=== PATIENT | female | born 1985 | race Caucasian/White ===

== ENCOUNTER 2021-08-26 02:50 | Inpatient (IN) ==
[2021-08-26] MEDS ORDERED: SODIUM CHLORIDE 0.9% 1000ML 500 ML IV ONE (03:07)
[2021-08-26] MEDS ORDERED: MoRPHine SULFATE 4 MG/ML 1 ML CARP\\VIAL IV STA ×2 (03:07→09:03)
[2021-08-26] MEDS ORDERED: ONDANSETRON INJ 2 MG/ML 2 ML VIAL IV STA (03:07)
[2021-08-26 03:48] LABS: Hemoglobin 12.6 g/dL (12.0-16.0); Mean Corpuscular Hemoglobin 28.9 pg (25-34); Mean Corpuscular Hgb Conc 32.3 g/dL (32-36); Mean Corpuscular Volume 89.4 fL (80-100); Platelet Count 234 K/uL (130-400); RDW Coefficient of Variation 14.3 % (11.5-14.5); RDW Standard Deviation 47.4 fL (36.4-46.3); Red Blood Count 4.36 M/uL (4.2-5.4); White Blood Count 11.64 K/uL (4.8-10.8)
[2021-08-26 03:59] LABS: Prothrombin Time 10.3 Seconds (9.0-12.0)
[2021-08-26 04:10] LABS: Basophils # (auto) 0.02 K/uL (0-0.2); Basophils % (auto) 0.2 %; Eosinophils # (auto) 0.09 K/uL (0-0.5); Eosinophils % (auto) 0.8 %; Immature Granulocytes # (auto) 0.04 K/uL (0.00-0.02); Immature Granulocytes % (auto) 0.3 %; Lymphocytes % (auto) 30.9 %; Monocytes # (auto) 0.72 K/uL (0.11-0.59); Monocytes % (auto) 6.2 %; Neutrophils # (auto) 7.17 K/uL (1.4-6.5); Neutrophils % (auto) 61.6 %; RBC Morphology Unremarkable
[2021-08-26 04:16] LABS: Albumin Globulin Ratio 1.3 (0.9-2); Albumin Level 3.6 gm/dl (3.4-5.0); BUN Creatinine Ratio 17.6 (10-20); Bilirubin,Total 0.4 mg/dl (0.2-1.0); Calcium 8.6 mg/dl (8.5-10.1); Creatinine Clr Calc Pharmacy 114.5 ml/min; Est GFR (African American) 119.9 ml/min; Est GFR (Non-African American) 103.4 ml/min; Globulin 2.8 gm/dl (2.5-4.0); Potassium 3.8 mmol/L (3.5-5.1); Total Protein 6.4 gm/dl (6.0-8.3); Troponin I High Sensitivity 4.3 pg/ml (0-14)
[2021-08-26] MEDS ORDERED: OPTIRAY 320 125ml IV ONE (05:09)
[2021-08-26] MEDS ORDERED: ACETAMINOPHEN 1000 MG/100 ML IV IV STA (05:10)
--- NOTE | 2021-08-26 05:36 | Emergency Department Note ---
History of Present Illness General Chief complaint: Flank Pain Time Seen by Provider: 08/26/21 02:56 History of Present Illness Maximum Pain Intensity: 8 This 36-year-old female patient presents to the emergency department today for evaluation of right side pain "just under my ribs". The patient states she has a history of brain tumor, seizures, and was recently admitted to [facility] for strokelike symptoms. [facility]. She notes she developed the pain about 2 days ago. She states there has been intermittent burning with urination and urinary frequency. She does have a known left-sided DVT in her left lower extremity and states she is on Lovenox for this clot. She states a urinalysis was obtained earlier today and she does not have the results of this study back yet. She states the pain feels different than constipation pain. She states this does feel different than her fibromyalgia. She denies any history of similar symptoms. There is no shortness of breath, but she has had some increased pain with deep breathing. Patient was given Percocet prior to arrival for the pain. She rates the pain 8/10 and describes it as sharp. Past Med/Surg History Medical History Anaplastic astrocytoma Bipolar affective disorder Borderline personality disorder Chronic low back pain Deep vein thrombosis (DVT) of left lower extremity Fibromyalgia Insomnia Left hemiplegia Migraines Seizure disorder Social History Smoking Status: Never smoker Preferred Language: [place] Feels Safe at Home: Yes Review of Systems A total of 10 systems reviewed and were otherwise negative Physical Exam Vital Signs Vital Signs - 24 hr 08/26/21 03:05 08/26/21 03:09 08/26/21 03:10 Temperature 36.9 C 36.9 C Temperature Source Oral Oral Pulse Rate 71 71 Pulse Rate [Finger] 71 Pulse Rhythm Regular Pulse Rhythm [Finger] Regular Pulse Strength Normal Pulse Strength [Finger] Normal Respiratory Rate 20 20 20 Respiratory Effort / Characteristics Non-Labored Spontaneous Non-Labored Spontaneous Respiratory Depth Normal Normal Blood Pressure 145/97 H Blood Pressure [Right Arm] 145/97 H Blood Pressure Mean 113 Blood Pressure Mean [Right Arm] 113 Blood Pressure Position Lying Blood Pressure Position [Right Arm] Lying Pulse Oximetry 92 92 92 Oxygen Delivery Method Room Air Room Air Room Air Oxygen Flow Rate Sepsis Recent Fever Within 48 Hours No Sepsis New/Unexplained Change in Mental Status No Sepsis Action Taken by Nursing No Action Required 08/26/21 05:11 Temperature Temperature Source Pulse Rate Pulse Rate [Finger] 88 Pulse Rhythm Pulse Rhythm [Finger] Regular Pulse Strength Pulse Strength [Finger] Normal Respiratory Rate 18 Respiratory Effort / Characteristics Non-Labored Spontaneous Respiratory Depth Normal Blood Pressure Blood Pressure [Right Arm] 150/97 H Blood Pressure Mean Blood Pressure Mean [Right Arm] 114 Blood Pressure Position Blood Pressure Position [Right Arm] Lying Pulse Oximetry 93 Oxygen Delivery Method Nasal Cannula Oxygen Flow Rate 2 Sepsis Recent Fever Within 48 Hours Sepsis New/Unexplained Change in Mental Status Sepsis Action Taken by Nursing VITALS: Vitals are noted on the nurse's note and reviewed by myself. Patient O2 saturation 90 to 92% on room air. GENERAL: This is a 36-year-old white female, in no acute distress, nondiaphoretic, well-developed well-nourished. SKIN: The skin was without rashes, erythema, edema, or bruising. There is no tenting of the skin. Capillary refill less than 2 seconds. HEAD: Normocephalic atraumatic. EYES: Conjunctivae without injection, sclerae without icterus. NECK: Supple without nuchal rigidity. No lymphadenopathy. Cervical spine is nontender. No JVD. CHEST: Reproducible tenderness to palpation of the left anterior and posterior thorax HEART: Regular rate and rhythm without murmurs gallops or rubs. LUNGS: Clear to auscultation bilaterally without wheezes, rales or rhonchi. No retractions or accessory muscle use. ABDOMEN: Positive bowel sounds x 4. Soft, nontender, without masses or organomegaly. Nolen sign negative. No guarding or rebound tenderness. MUSCULOSKELETAL: No muscle atrophy, erythema, or edema noted. Full range of motion without joint tenderness in all extremities. No tenderness to palpation. Normal gait. Strength 5/5 throughout. NEURO: Patient was alert and oriented to person place and time. Normal sensation to light and sharp touch. Deep tendon reflexes 2+ throughout. No focal neurological deficits. Course Course The patient was seen and evaluated as above. I discussed the case with my attending. An order was placed for continuous cardiac monitoring. The monitor shows a normal sinus rhythm at a rate of 88 bpm. IV access obtained, labs drawn. Pt. medicated with IV fluids, zofran, morphine. Labs reviewed by myself. Patient continued to complain of pain. She was medicated with IV acetaminophen CT Imaging performed and reviewed by myself and radiologist as noted. I discussed the findings with the patient at bedside. 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 Mata[facility] He did agree to see and evaluate the patient for admission. He did request that the admission go to Dr. Mosley at shift change in the morning. Please see [facility] dictation regarding ongoing management and care of this patient. Administered Medications Discontinued Medications Acetaminophen (Acetaminophen 1000 Mg/100 Ml Iv) 1,000 mg IV NOW STA Stop: 08/26/21 05:11 Last Admin: 08/26/21 05:13 Dose: 1,000 mg Documented by: [id number] Sodium Chloride (Nss 1000ml) 500 mls @ 999 mls/hr IV .Q31M ONE Stop: 08/26/21 03:37 Last Infusion: 08/26/21 03:46 Dose: 0 mls/hr Documented by: [id number] Admin: 08/26/21 03:17 Dose: 999 mls/hr Documented by: [id number] Ioversol (Optiray 320 125ml) 125 ml IV ONCE ONE Stop: 08/26/21 05:10 Last Admin: 08/26/21 05:09 Dose: 116 ml Documented by: [id number] Morphine Sulfate (Morphine Sulfate 4 Mg/Ml 1 Ml Carp\\Vial) 4 mg IV NOW STA Stop: 08/26/21 03:08 Last Admin: 08/26/21 03:20 Dose: 4 mg Documented by: [id number] Ondansetron HCl (Ondansetron Inj 2 Mg/Ml 2 Ml Vial) 4 mg IV NOW STA Stop: 08/26/21 03:08 Last Admin: 08/26/21 03:15 Dose: 4 mg Documented by: [id number] Medical Decision Making Differential Diagnosis Cardiac ischemia, aortic dissection, pulmonary embolism, pneumothorax, pneumonia, pericarditis, myocarditis, esophageal rupture, GERD, cholecystitis, pancreatitis, musculoskeletal, as well as other pathologies. Medical Records Attestation: I reviewed the patient's medical records. Home Medications Current Medication List: was personally reviewed by me Laboratory Data Mild leukocytosis of 11,000. No anemia or thrombocytopenia. Renal, hepatic function and electrolytes without significant abnormality. Lipase 9. INR 1.0. Result diagrams: 08/26/21 03:08/26/21 03:26 Lab Results 08/26/21 08/26/21 08/26/21 Range/Units 03:26 03: 03:26 WBC 11.64 H (4.8-10.8) K/uL RBC 4.36 (4.2-5.4) M/uL Hgb 12.6 (12.0-16.0) g/dL Hct 39.0 (37-47) % MCV 89.4 (80-100) fL MCH 28.9 (25-34) pg MCHC 32.3 (32-36) g/dL RDW Std Deviation 47.4 H (36.4-46.3) fL RDW Coeff of Elisa 14.3 (11.5-14.5) % Plt Count 234 (130-400) K/uL MPV 10.0 (7.4-10.4) fL Immature Gran % (Auto) 0.3 % Neut % (Auto) 61.6 % Lymph % (Auto) 30.9 % [place] % (Auto) 6.2 % Eos % (Auto) 0.8 % Baso % (Auto) 0.2 % Neut # (Auto) 7.17 H (1.4-6.5) K/uL Lymph # (Auto) 3.60 H (1.2-3.4) K/uL [place] # (Auto) 0.72 H (0.11-0.59) K/uL Eos # (Auto) 0.09 (0-0.5) K/uL Baso # (Auto) 0.02 (0-0.2) K/uL Immature Gran # (Auto) 0.04 H (0.00-0.02) K/uL RBC Morphology Unremarkable PT 10.3 (9.0-12.0) Seconds INR 1.0 (0.9-1.1) Sodium 139 (136-145) mmol/L Potassium 3.8 (3.5-5.1) mmol/L Chloride 104 (98-107) mmol/L Carbon Dioxide 26 (21-32) mmol/L Anion Gap 9 (3-11) BUN 12 (6-23) mg/dl Creatinine 0.68 (0.6-1.2) mg/dl Est Cr Clr Drug Dosing 114.5 ml/min Est GFR ( Amer) 119.9 ml/min Est GFR (Non-Af Amer) 103.4 ml/min BUN/Creatinine Ratio 17.6 (10-20) Glucose 91 (70-99(Fasting)) mg/dl Calcium 8.6 (8.5-10.1) mg/dl Total Bilirubin 0.4 (0.2-1.0) mg/dl AST 15 (13-39) U/L ALT 19 (7-52) U/L Alkaline Phosphatase 47 (34-104) U/L Troponin I High Sens 4.3 (0-14) pg/ml Total Protein 6.4 (6.0-8.3) gm/dl Albumin 3.6 (3.4-5.0) gm/dl Globulin 2.8 (2.5-4.0) gm/dl Albumin/Globulin Ratio 1.3 (0.9-2) Lipase 9 L (11-82) U/L Imaging Data Radiologist's Impression: CTA CHEST: Impression: There is acute lobar, segmental and subsegmental pulmonary embolism seen in the lower lobes No evidence of right heart strain. Segmental pulmonary embolism seen in the lingula and in the segment of the right middle lobe. Small right pleural effusion Bilateral basilar consolidations are seen. Radiologist: Samuel Bernal MD CT ABDOMEN & PELVIS With Contrast: Impression: Small right pleural effusion Bilateral basilar pneumonia Moderate amount of fecal matter seen in the colon which can be correlated with history of constipation Appendectomy No evidence of cholecystitis Radiologist: Samuel Bernal MD ECG Data Attestation: I personally reviewed and interpreted this ECG as follows: Indication: + chest pain Rate (beats per minute): 67 Rhythm: + normal sinus ECG ST segments: no ST depression, no ST elevation or no T-wave inversions Comparison ECG Date: no prior available Blood Pressure Blood Pressure Findings: Elevated blood pressure Blood Pressure Disposition: elevated BP felt to be situational MDM Narrative This 36-year-old female patient presents to the emergency department today for evaluation of right rib pain. The patient was recently hospitalized. She was also found to have a left lower extremity DVT. She does have a history of malignancy, recent hospitalization, and known DVT did recommend CT imaging to evaluate for PE, as well as CT abd/pelvis due to location of pain. CT imaging was concerning for acute PE as noted. No evidence of heart strain. Troponin negative. Patient was started on heparin while in the emergency department. She will be admitted to the [facility] hospitalist service for ongoing management and care. Please see hospitalist dictation. The chart was completed utilizing [employer] Speech voice recognition software. Grammatical errors, random word insertions, pronoun errors, and incomplete sentences are an occasional consequence of this system due to software limitations, ambient noise, and hardware issues. Any formal questions or concerns about the content, text, or information contained within the body of this dictation should be directly addressed to the provider for clarification. Impression & Plan Pulmonary embolism, Acute right-sided thoracic back pain Discharge Plan Visit Data Chief Complaint: Flank Pain ED Provider: Rubin Murphy ED Midlevel Provider: Liz Skinner Discharge Problem: Pulmonary embolism, Acute right-sided thoracic back pain Patient Disposition: Admitted As Inpatient Forms Stand Alone Forms: [facility] Referrals Referrals: PCP,NO [Primary Care Provider] -
[2021-08-26] MEDS ORDERED: Heparin IV Adult Wt-Based Standard WITH Bolus Protocol IV STA (06:31)
[2021-08-26] MEDS ORDERED: HEPARIN SOD (PORCINE) 1000 UNIT/ML IV ONE ×2 (06:46→07:45)
--- NOTE | 2021-08-26 06:46 | CT Scan Report ---
CT ANGIOGRAPHY OF THE CHEST, PULMONARY EMBOLUS PROTOCOL CLINICAL HISTORY: right "rib pain", known DVT COMPARISON STUDY: No previous studies for comparison. TECHNIQUE: Following IV administration of 116 mL of Optiray, helical axial images of the chest were o btained utilizing the pulmonary embolus protocol. Maximal intensity projections and sagittal and cor onal reformats were viewed on an independent 3D workstation. IV contrast was administered without co mplication. Automated exposure control was utilized for the study. A dose lowering technique was ut ilized adhering to the principles of ALARA. CT DOSE: 2168.34 mGy.cm FINDINGS: There are numerous bilateral pulmonary emboli, including emboli within the distal left pul monary artery. There are multiple lobar and segmental pulmonary emboli, predominantly within the lowe r lobes. There is associated extensive right lower lobe subpleural opacity, some of which does not en yasmin. There is a trace right pleural effusion. This suggests a right lower lobe infarct. Left lung o pacities favor atelectasis. There is no pneumothorax. No CT evidence for right heart strain. Size of the heart is at the upper limits of normal. No enlarged axillary, mediastinal or hilar lymph nodes ar e present. There is no pneumomediastinum. No pneumothorax is present. No acute fracture or suspicious lesion within the visualized bony thorax. Visualized portions of the upper abdomen are unremarkable. IMPRESSION: 1. Numerous bilateral pulmonary emboli, as described above. Right lower lobe subpleural opacity consi stent with a pulmonary infarct with a small right pleural effusion. 2. Additional airspace opacities within the lungs favor atelectasis. ACT 112: Negative or not required by law. Electronically signed by: Phan Quinones M.D. 08/26/2021 6:44 AM
[2021-08-26] MEDS ORDERED: HEPARIN SODIUM/DEXTROSE 25,000 UNITS/500 ML BAG IV SCH ×2 (07:00→07:45)
[2021-08-26] MEDS ORDERED: oxyCODONE HCL IR 5 MG TAB (IMMEDIATE RELEASE) PO PRN (09:15)
--- NOTE | 2021-08-26 09:21 | CT Scan Report ---
CT abd pelvis IV con only CLINICAL HISTORY: Right-sided lower chest pain radiating down the right flank. COMPARISON STUDY: No previous studies for comparison. CT DOSE: TECHNIQUE: Standard CT of the Abdomen and Pelvis was performed with IV contrast. A dose lowering caryn hnique was utilized adhering to the principles of ALARA. Contrast Volume: Optiray 320, 116 ml. The patient did not receive oral contrast. FINDINGS: Lung base: There is prominent alveolar opacity the right lung base characteristic of atelectasis vers us early pneumonia. There is linear atelectasis left lung base. There is a small right pleural effusi on. Abdominal cavity: There is no evidence for abdominal mass, adenopathy or ascites. Liver: There is homogeneous attenuation of the liver parenchyma. There is no evidence for enhancing m ass lesion. Spleen: There is homogeneous attenuation of the splenic parenchyma. There is no enhancing mass lesion . Pancreas: There is homogeneous attenuation of the pancreatic parenchyma. There is no evidence for mas s lesion or peripancreatic fluid collection. Gall Bladder: The gallbladder is well distended with no evidence for intraluminal calculi, wall thick ening or pericholecystic edema. Adrenal glands: The adrenal glands are normal in size and attenuation. There is no evidence for enhan cing mass lesion. Kidneys: There is homogeneous attenuation of the renal parenchyma bilaterally. There is no evidence f or renal calculus or hydronephrosis. There is no evidence for enhancing mass. Bowel: The bowel loops are normally placed within the abdomen and pelvis without evidence for dilatat ion or obstruction. There is no evidence for mass lesion. There is mild to moderate fecal stasis with out evidence for impaction or obstruction. There are no inflammatory changes present. There is no david dence for free air. Surgical clips are present from previous appendectomy. Bladder: The bladder is within normal limits with no evidence for focal mass, calculus or diverticulu m. : There is no evidence for pelvic mass or adenopathy. There is no evidence for pelvic ascites. Vasculature: There is no evidence for aneurysmal dilatation of the abdominal aorta. Osseous structures: There is no acute osseous pathology. IMPRESSION: 1. Very prominent atelectasis versus early pneumonia at the right lung base. Small right pleural effu phil is also present. 2. Left basilar atelectasis is also present. 3. No renal calculi or hydronephrosis. 4. Status post previous appendectomy. 5. Mild to moderate fecal stasis without impaction or obstruction. ACT 112: Negative or not required by law. Electronically signed by: David Milton M.D. 08/26/2021 9:18 AM
--- NOTE | 2021-08-26 09:54 | Electrocardiogram Report ---
Test Reason : Blood Pressure : / mmHG Vent. Rate : 067 BPM Atrial Rate : 067 BPM P-R Int : 146 ms QRS Dur : 084 ms QT Int : 388 ms P-R-T Axes : -04 015 012 degrees QTc Int : 409 ms Normal sinus rhythm Nonspecific T wave abnormality Abnormal ECG No previous ECGs available Confirmed by Chicho Rudd ([id number]) on 08/26/2021 9:53:39 AM Referred By: REFERRED SELF Confirmed By:Chicho Rudd
[2021-08-26] MEDS ORDERED: BACLOFEN 10 MG TAB PO PRN (10:06)
[2021-08-26] MEDS ORDERED: DOCUSATE SODIUM/SENNA 50/8.6MG TAB PO PRN (10:06)
[2021-08-26] MEDS ORDERED: bisacodyL 10 MG SUPP PR PRN (10:06)
[2021-08-26] MEDS ORDERED: TEMAZEPAM 15 MG CAPSULE PO PRN (10:06)
[2021-08-26] MEDS ORDERED: hydrOXYzine HCl 25 MG TAB PO PRN (10:06)
[2021-08-26] MEDS: ACETAMINOPHEN 325 MG TAB PO SCH ×2 (10:18→17:59)
--- NOTE | 2021-08-26 11:41 | History & Physical Report ---
Date of Service August 26, 2021 Assessment & Plan (1) Pulmonary embolism: (2) Deep vein thrombosis (DVT) of left lower extremity: Plan: Admit to [facility] with telemetry Patient presenting from [facility] for evaluation of right rib pleuritic pain In the ED, CTA chest shows numerous bilateral pulmonary emboli, as described above. Right lower lobe subpleural opacity consistent with a pulmonary infarct with a small right pleural effusion. Recently diagnosed with LLE DVT (partially occlusive DVT of the left proximal femoral and popliteal veins) on 08/21 at [facility]. Patient started on therapeutic dose Lovenox at that time. Currently requiring 2 L of oxygen via nasal cannula to maintain saturations Multiple VTE risk factors identified -underlying malignancy, decreased mobility due to onset of recent left hemiplegia, + smoker, control use Difficult to say if this was a true Lovenox failure Case discussed with patient's primary oncologist Dr. 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 Recent brain MRI has shown progression of tumor --oncology considering palliative chemotherapy, not a candidate for surgical or radiation intervention (4) Seizure disorder: Plan: Stable, continue Vimpat (5) Bipolar affective disorder: (6) Fibromyalgia: Plan: Continue home meds (7) DVT prophylaxis: Plan: On IV heparin as above Admission and Anticipated Discharge Date Admission Date: August 26, 2021 History of Present Illness Chief Complaint: Right-sided rib pain Primary Care Provider: Marek Crum 36-year-old female with 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 Patient recently admitted to [facility] 08/15 through 08/20 for evaluation of left-sided hemiparesis. Patient underwent brain MRI that showed changes concerning for tumor progression and ischemia around mass, no ischemic stroke noted. Patient was started on dexamethasone 2 mg twice daily to reduce vasogenic edema. Oncology was consulted and suggested consideration for palliative chemotherapy with Avastin and Temodar. Neurosurgery is not recommending any surgical intervention for the tumor at this time. Patient is also not a candidate for radiation per radiation oncology. Patient was discharged to [facility] for rehab. Upon arrival to [facility], patient was complaining of left calf pain. LLE venous Doppler on 08/21 showed a partially occlusive DVT of the left proximal femoral and popliteal veins. Patient was started on therapeutic dose Lovenox. Patient reports she developed a right- sided rib pain that is wrapping around into her back a couple of days ago. Patient reports that it is difficult to take a deep breath as this makes the pain worse, she seems to deny shortness of breath. No chest pain or cough. Denies lightheadedness, dizziness, diaphoresis, syncopal events. No abdominal pain, nausea, vomit, diarrhea. Denies urinary symptoms. Left-sided hemiparesis continues. In the ED, CTA chest shows numerous bilateral pulmonary emboli, as described above. Right lower lobe subpleural opacity consistent with a pulmonary infarct with a small right pleural effusion. Patient is requiring 2 L of oxygen via nasal cannula to maintain saturations. Patient was started on IV heparin. She was also given IV acetaminophen, IV morphine, IV Zofran, IVF. Labs are unremarkable. Allergies Allergy/AdvReac Type Severity Reaction Status Date / Time sumatriptan [From Imitrex] Allergy Unknown Unknown Unverified 08/26/21 07:00 barium sulfate AdvReac Severe heart Unverified 08/26/21 07:00 attack feeling codeine AdvReac Intermediate Throwing up Unverified 08/26/21 07:00 gabapentin AdvReac Intermediate sleepy, Unverified 08/26/21 07:00 tired, dizzy Home Medications Medication Instructions Recorded Confirmed Type Saccharomyces boulardii 250 mg 250 mg PO DAILY 08/26/21 08/26/21 History capsule acetaminophen 325 mg tablet 650 mg PO Q4H PRN 08/26/21 08/26/21 History artificial tears with lanolin eye 1 applic OPHTHALMIC (EYE) Q8H PRN 08/26/21 08/26/21 History ointment baclofen 10 mg tablet 10 mg PO TID PRN 08/26/21 08/26/21 History balsam moe-castor oil topical 1 applic TOPICAL DAILY 08/26/21 08/26/21 History ointment bisacodyl 10 mg rectal suppository 10 mg WV DAILY PRN 08/26/21 08/26/21 History dexamethasone 2 mg tablet 2 mg PO BID 08/26/21 08/26/21 History diclofenac sodium 1 % topical gel 2 g TOPICAL DAILY PRN 08/26/21 08/26/21 History docusate sodium 100 mg capsule 100 mg PO BID 08/26/21 08/26/21 History duloxetine 60 mg capsule,delayed 60 mg PO QAM 08/26/21 08/26/21 History release enoxaparin 100 mg/mL subcutaneous 90 mg SUBCUT Q12H 08/26/21 08/26/21 History syringe famotidine 20 mg tablet 20 mg PO BID 08/26/21 08/26/21 History fenofibrate nanocrystallized 48 mg 48 mg PO QAM 08/26/21 08/26/21 History tablet guanfacine 1 mg tablet 1 mg PO BID 08/26/21 08/26/21 History hydroxyzine HCl 50 mg tablet 50 mg PO DAILY PRN 08/26/21 08/26/21 History lacosamide 100 mg tablet (Vimpat) 100 mg PO BID 08/26/21 08/26/21 History loratadine 10 mg tablet 10 mg PO DAILY 08/26/21 08/26/21 History magnesium hydroxide 400 mg/5 mL 30 ml PO DAILY PRN 08/26/21 08/26/21 History oral suspension (Milk of Magnesia) menthol 5 % topical gel (Biofreeze 1 ea TOPICAL QID PRN 08/26/21 08/26/21 History (menthol)) metoprolol tartrate 25 mg tablet 12.5 mg PO BID 08/26/21 08/26/21 History multivitamin 1 tab PO DAILY 08/26/21 08/26/21 History norgestimate-ethinyl estradiol 1 tab PO HS 08/26/21 08/26/21 History 0.18 mg/0.215mg/0.25mg-35 mcg(28)tablet (Tri-Sprintec (28)) oxycodone-acetaminophen 5 mg-325 1 tab PO Q4H PRN 08/26/21 08/26/21 History mg tablet polyethylene glycol 3350 17 17 g PO DAILY 08/26/21 08/26/21 History gram/dose oral powder (Miralax) prochlorperazine maleate 10 mg 10 mg PO Q6H PRN 08/26/21 08/26/21 History tablet rizatriptan 10 mg disintegrating 10 mg TRANSLINGUAL DAILY PRN 08/26/21 08/26/21 History tablet sennosides 8.6 mg-docusate sodium 1 tab-cap PO DAILY PRN 08/26/21 08/26/21 History 50 mg tablet (Senokot-S) sodium phosphates 19 gram-7 118 ml WV DAILY PRN 08/26/21 08/26/21 History gram/118 mL enema (Fleet Enema) temazepam 15 mg capsule 15 mg PO HS PRN 08/26/21 08/26/21 History ziprasidone HCl 20 mg capsule 20 mg PO BID 08/26/21 08/26/21 History Past Med/Surg History Medical History 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, s/p craniotomy x 2 Bipolar affective disorder Borderline personality disorder Chronic low back pain Deep vein thrombosis (DVT) of left lower extremity Fibromyalgia Hypertriglyceridemia Insomnia Left hemiplegia Migraines Seizure disorder Surgical History History of appendectomy History of carpal tunnel surgery Family History (Updated 08/26/21 @ 11:30 by ALB[place] Mejía) Father Suicide Mother Heart murmur Social History Smoking Status: Current every day smoker Second Hand Exposure: No; Do You Dip or Chew Tobacco: No; Preferred Language: Upper Sorbian Communication Ability: Impaired Non Profit Director Required: No Beliefs That Will Affect Care: None Current Living Situation: Alone Current Living Situation Comment: "live with a cat" Feels Safe at Home: Yes Safety Concerns: Feels Safe At This Time Assistive Devices: Wheelchair Review of Systems Review of Systems: ROS per HPI, all other systems reviewed and negative Physical Exam Constitutional: WD/WN, vitals as above Eyes: PERRL, conjunctivae normal, anicteric sclerae ENMT: external ear and nose normal, oropharynx normal Respiratory: normal respiratory effort, lungs clear to auscultation Cardiovascular: Rate/Rhythm: regular rate and regular rhythm Vessels: normal peripheral pulses Extremities: no edema Gastrointestinal (Abdomen): normal bowel sounds, soft, nontender, no hepatosplenomegaly Musculoskeletal: Extremities: no cyanosis and no clubbing Left hemiparesis Skin: no rashes, warm and dry Neurologic: PERRL, EOMI, accommodation nl, no face palsy, no dysarthria Psychiatric: Orientation: alert and oriented x 3 Affect: + flat affect Results & Data Results & Data ([facility]) Vital Signs (Past 12 Hours) Vital Signs Temp Pulse Pulse Resp BP BP Pulse Ox 08/26/21 09:52 36.3 C L 103 H 20 146/88 H 90 08/26/21 08:57 94 H 20 158/114 H 92 08/26/21 07:48 80 80 12 133/89 91 08/26/21 07:00 91 08/26/21 05:11 88 18 150/97 H 93 08/26/21 03:10 71 20 92 08/26/21 03:09 36.9 C 71 20 145/97 H 92 08/26/21 03:05 36.9 C 71 20 145/97 H 92 Laboratory Results Short CBC 08/26/21 Range/Units 03:26 WBC 11.64 H (4.8-10.8) K/uL Hgb 12.6 (12.0-16.0) g/dL Hct 39.0 (37-47) % Plt Count 234 (130-400) K/uL BMP 08/26/21 03:26 Sodium 139 Potassium 3.8 Chloride 104 Carbon Dioxide 26 BUN 12 Creatinine 0.68 Glucose 91 Calcium 8.6 Liver Function 08/26/21 Range/Units 03:26 Total Bilirubin 0.4 (0.2-1.0) mg/dl AST 15 (13-39) U/L ALT 19 (7-52) U/L Alkaline Phosphatase 47 (34-104) U/L Albumin 3.6 (3.4-5.0) gm/dl Diagnostic Findings Abdomen/Pelvis CT 08/26/21 03:07 CT abd pelvis IV con only CLINICAL HISTORY: Right-sided lower chest pain radiating down the right flank. COMPARISON STUDY: No previous studies for comparison. CT DOSE: TECHNIQUE: Standard CT of the Abdomen and Pelvis was performed with IV contrast. A dose lowering technique was utilized adhering to the principles of ALARA. Contrast Volume: Optiray 320, 116 ml. The patient did not receive oral contrast. FINDINGS: Lung base: There is prominent alveolar opacity the right lung base characteristic of atelectasis versus early pneumonia. There is linear atelectasis left lung base. There is a small right pleural effusion. Abdominal cavity: There is no evidence for abdominal mass, adenopathy or ascites. Liver: There is homogeneous attenuation of the liver parenchyma. There is no evidence for enhancing mass lesion. Spleen: There is homogeneous attenuation of the splenic parenchyma. There is no enhancing mass lesion. Pancreas: There is homogeneous attenuation of the pancreatic parenchyma. There is no evidence for mass lesion or peripancreatic fluid collection. Gall Bladder: The gallbladder is well distended with no evidence for intraluminal calculi, wall thickening or pericholecystic edema. Adrenal glands: The adrenal glands are normal in size and attenuation. There is no evidence for enhancing mass lesion. Kidneys: There is homogeneous attenuation of the renal parenchyma bilaterally. There is no evidence for renal calculus or hydronephrosis. There is no evidence for enhancing mass. Bowel: The bowel loops are normally placed within the abdomen and pelvis without evidence for dilatation or obstruction. There is no evidence for mass lesion. There is mild to moderate fecal stasis without evidence for impaction or obstruction. There are no inflammatory changes present. There is no evidence for free air. Surgical clips are present from previous appendectomy. Bladder: The bladder is within normal limits with no evidence for focal mass, calculus or diverticulum. : There is no evidence for pelvic mass or adenopathy. There is no evidence for pelvic ascites. Vasculature: There is no evidence for aneurysmal dilatation of the abdominal aorta. Osseous structures: There is no acute osseous pathology. IMPRESSION: 1. Very prominent atelectasis versus early pneumonia at the right lung base. Small right pleural effusion is also present. 2. Left basilar atelectasis is also present. 3. No renal calculi or hydronephrosis. 4. Status post previous appendectomy. 5. Mild to moderate fecal stasis without impaction or obstruction. ACT 112: Negative or not required by law. Electronically signed by: David Milton M.D. 08/26/2021 9:18 AM Chest CTA 08/26/21 03:07 CT ANGIOGRAPHY OF THE CHEST, PULMONARY EMBOLUS PROTOCOL CLINICAL HISTORY: right "rib pain", known DVT COMPARISON STUDY: No previous studies for comparison. TECHNIQUE: Following IV administration of 116 mL of Optiray, helical axial images of the chest were obtained utilizing the pulmonary embolus protocol. Maximal intensity projections and sagittal and coronal reformats were viewed on an independent 3D workstation. IV contrast was administered without complication. Automated exposure control was utilized for the study. A dose lowering technique was utilized adhering to the principles of ALARA. CT DOSE: 2168.34 mGy.cm FINDINGS: There are numerous bilateral pulmonary emboli, including emboli within the distal left pulmonary artery. There are multiple lobar and segmental pulmonary emboli, predominantly within the lower lobes. There is associated extensive right lower lobe subpleural opacity, some of which does not enhance. There is a trace right pleural effusion. This suggests a right lower lobe infarct. Left lung opacities favor atelectasis. There is no pneumothorax. No CT evidence for right heart strain. Size of the heart is at the upper limits of normal. No enlarged axillary, mediastinal or hilar lymph nodes are present. There is no pneumomediastinum. No pneumothorax is present. No acute fracture or suspicious lesion within the visualized bony thorax. Visualized portions of the upper abdomen are unremarkable. IMPRESSION: 1. Numerous bilateral pulmonary emboli, as described above. Right lower lobe subpleural opacity consistent with a pulmonary infarct with a small right pleural effusion. 2. Additional airspace opacities within the lungs favor atelectasis. ACT 112: Negative or not required by law. Electronically signed by: Phan Quinones M.D. 08/26/2021 6:44 AM Code Status & VTE Plan Code Status Patient is a DNR as per my discussion with her. Patient states that her mother, Marisol, will be her decision-maker in the event she were to be unable to. VTE Prophylaxis Plan VTE Prophylaxis will be ordered: Yes Supervising Physician Co-Signing Physician Notes Pt was seen and examined and examined. Agree with Roula LOVELACE exam, assessment and plan. 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 Patient as recently on 08/15 to 08/20 for evaluation of left-sided hemiparesis. She was discharged to [facility] for rehab. While at [facility] she was complaining of L calf pain and LLE venous Doppler on 08/21 showed a partially occlusive DVT of the left proximal femoral and popliteal veins. Spoke to the provider at [facility] that pt was started on Lovenox daily then changed to Lovenox 90mg therapeutic dose twice a day 1 day ago. She was brought to the ER after developing right-sided rib pain that is wrapping around into her back a couple of days ago. CTA chest done in the ER showed chest shows numerous bilateral pulmonary emboli. Right lower lobe subpleural opacity consistent with a pulmonary infarct with a small right pleural effusion.She was started on heparin drip and oxygen supplement. Case discussed with patient's primary oncologist Dr. Luan Flor at [facility] --agrees with IV heparin for now, transition to Eliquis or therapeutic dose Lovenox pending patient cost. Consider outpatient CT chest for follow up on the pulmonary infarct When patient was brought to the floor, nurse paged me that patient wants to transfer to [place] or transition to hospice or sign AMA. I went to talk to patient she said that she wants to leave the hospital now because she does not like this hospital. She said that she does not feel safe being in this hospital. She said that she does not want to spend another night in the hospital if not she will sign AMA. Later her mother came to visit her. With patient permission she gave consent to discuss case with Mother and mother partner. I called [facility] discussed the case with Dr. Velez that declined the transfer due to hospital capacity (no bed) and since pt is stable that required any treatment or service that she will need at a tertiary care for transfer. Pt agreed to Transfer to [facility]. Case discussed with Dr. Ly at [facility] that agreed to take her. At [facility] pt will transition to hospice. manager of organizational development was notified and referral placed for hospice. Will d/c IV heparin drip and transition to Eliquis. If cost is an issue, pt can go back on Lovenox. Will do Eliquis 10mg BID x 7 days, then 5mg BID. Clinically stable on 2L oxygen nasal gayle Mosley MD (1) Pulmonary embolism Pulmonary embolism type: multiple subsegmental (without acute cor pulmonale) Qualified Code(s): I26.94 - Multiple subsegmental pulmonary emboli without acute cor pulmonale
[2021-08-26] MEDS: MoRPHine SULFATE 4 MG/ML 1 ML CARP\\VIAL IV PRN ×2 (14:02→20:26)
[2021-08-26 14:53] LABS: Partial Thromboplastin Ratio 1.4; Partial Thromboplastin Time 38.4 Seconds (21.0-31.0)
[2021-08-26] MEDS ORDERED: APIXABAN 5 MG TABLET PO SCH (18:00)
--- NOTE | 2021-08-26 18:05 | Discharge Summary ---
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 Patient recently [place] [facility] [place] 08/20 for evaluation of left-sided hemiparesis. Patient underwent brain MRI that showed changes concerning for tumor progression and ischemia around mass, no ischemic stroke noted. Patient was started on dexamethasone 2 mg twice daily to reduce vasogenic edema. Oncology was consulted and suggested consideration for pall iative chemotherapy with Avastin and Temodar. Neurosurgery is not recommending any surgical intervention for the tumor at this time. Patient is also not a candidate for radiation per radiation oncology. Patient was discharged to [facility] for rehab. Upon arrival to [facility], patient was complaining of left calf pain. LLE venous Doppler on 08/21 showed a partially occlusive DVT of the left proximal femoral and popliteal veins. Patient was started on therapeutic dose Lovenox. Patient reports she developed a right-sided rib pain that is wrapping around into her back a couple of days ago. Patient reports that it is difficult to take a deep breath as this makes the pain worse, she seems to deny shortness of breath. No chest pain or cough. Denies lightheadedness, dizziness, diaphoresis, syncopal events. No abdominal pain, nausea, vomit, diarrhea. Denies urinary symptoms. Left-sided hemiparesis continues. In the ED, CTA chest shows numerous bilateral pulmonary emboli, as described above. Right lower lobe subpleural opacity consistent with a pulmonary infarct with a small right pleural effusion. Patient is requiring 2 L of oxygen via nasal cannula to maintain saturations. Patient was started on IV heparin. She was also given IV acetaminophen, IV morphine, IV Zofran, IVF. Labs are unremarkable. Admission Exam Per Admitting Provider Constitutional: WD/WN, vitals as above Eyes: PERRL, conjunctivae normal, anicteric sclerae ENMT: external ear and nose normal, oropharynx normal Respiratory: normal respiratory effort, lungs clear to auscultation Cardiovascular: Rate/Rhythm: regular rate and regular rhythm Vessels: normal peripheral pulses Extremities: no edema Gastrointestinal (Abdomen): normal bowel sounds, soft, nontender, no hepatosplenomegaly Musculoskeletal: Extremities: no cyanosis and no clubbing Left hemiparesis Skin: no rashes, warm and dry Neurologic: PERRL, EOMI, accommodation nl, no face palsy, no dysarthria Psychiatric: Orientation: alert and oriented x 3 Affect: + flat affect Principal Diagnosis (1) Pulmonary embolism: (2) Deep vein thrombosis (DVT) of left lower extremity: (3) Anaplastic astrocytoma: (4) Seizure disorder: (5) Bipolar affective disorder: (6) Fibromyalgia: Discharge Exam General- No acute distress Head- atraumatic Eyes- PERRL, EOMI, ENT- oropharynx clear Neck- supple, no JVD Lungs- clear to auscultation Heart- regular rhythm; no murmur Abdomen- normal bowel sounds, soft, nontender Extremities- no calf tenderness Neuro- alert, oriented x 3; PERRL, EOMI; no facial palsy; no dysarthria, left hemiparesis Skin- warm & dry Discharge Data Allergies Allergy/AdvReac Type Severity Reaction Status Date / Time sumatriptan [From Imitrex] Allergy Unknown Unknown Unverified 08/26/21 07:00 barium sulfate AdvReac Severe heart Unverified 08/26/21 07:00 attack feeling codeine AdvReac Intermediate Throwing up Unverified 08/26/21 07:00 gabapentin AdvReac Intermediate sleepy, Unverified 08/26/21 07:00 tired, dizzy Consultations 08/26/21 06:35 ED Decision to Admit Stat Ordered Studies 08/26/21 03:07 CT abd pelvis IV con only Urgent CT angio chest PE protocol Urgent Hospital Course (1) Pulmonary embolism: (2) Deep vein thrombosis (DVT) of left lower extremity: Admit to [facility] with telemetry Patient presenting from [facility] for evaluation of right rib pleuritic pain Multiple VTE risk factors identified -underlying malignancy, decreased mobility due to onset of recent left hemiplegia, + smoker, control use In the ED, CTA chest shows numerous bilateral pulmonary emboli, as described above. Right lower lobe subpleural opacity consistent with a pulmonary infarct with a small right pleural effusion. Recently diagnosed with LLE DVT (partially occlusive DVT of the left proximal femoral and popliteal veins) on 08/[address] [facility]. Pt was not started on therapeutic Lovenox dose around 08/25 (This is not Lovenox failure) Currently requiring 2 L of oxygen via nasal cannula to maintain saturations Case discussed with patient's primary oncologist Dr. Luan Flor [place] [facility] [place]agrees with IV heparin for now, transition to Eliquis or therapeutic dose Lovenox pending patient cost Noted that recent brain MRI did not show any evidence of hemorrhage or microhemorrhage around tumor Will start on Eliquis 10mg BID x 7days, then 5mg BID (If cost is an issue, your provider can change the anticoagulant to Lovenox 90mg subq twice a day) Consider to repeat CT chest in 1 month for the pulmonary infarct Continue monitor for abnormal bleeding Pt was not happy about the care that she is getting at [facility]. she wants to leave the hospital because she does not like this hospital. She said that she does not feel safe being in this hospital. She said that she does not want to spend another night in the hospital if not she will sign AMA. Later her mother came to visit her. With patient permission she gave consent to discuss case with Mother and mother partner. I called [facility] discussed the case with Dr. Velez that declined the transfer due to hospital capacity (no bed) and since pt is stable that required any treatment or service that she will need at a tertiary care for transfer. Pt agreed to Transfer to [facility]. Case discussed with Dr. Ly at [facility] that agreed to take her. At [facility] pt will transition to hospice. night club manager was notified and referral placed for [facility]. 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 Flor's recommendation. Monitor patient for worsening symptoms for 1 week and consider further reduction at that time. Patient would like to transition to Hospice care once discharge to [facility] (4) Seizure disorder: Stable, continue Vimpat Continue seizure precaution (5) Bipolar affective disorder: (6) Fibromyalgia: Continue home meds (7) DVT prophylaxis: On IV heparin drip, will transition to Eliquis Total Time Total Time Spent Total Time Spent (In Minutes): 45 minutes Discharge Plan Discharge Items Patient Disposition: Transfer Inpatient Rehab Fac Reason For Visit: PE Discharge Diagnosis: (1) Pulmonary embolism: (2) Deep vein thrombosis (DVT) of left lower extremity: (3) Anaplastic astrocytoma: (4) Seizure disorder: (5) Bipolar affective disorder: (6) Fibromyalgia: Activity: Resume your previous activity Non-emergency contact: Primary Care Provider, Specialist and Oncologist Call non-emergency contact if: you have any medication questions Follow-up/Referrals: Marek Crum MD [Primary Care Provider] - Diet: Regular Addtl Attending Provider Instructions: Follow up with your primary care once discharge from [facility] Follow up with the Hospice team for goal of care Follow up with your Oncology Dr. Flor Continue Eliquis 10mg twice a day for 7 days, then 5mg twice a day ( If cost is an issue, your provider can change the anticoagulant to Lovenox 90mg subq twice a day) Decadron changed to 2mg in the morning and 1 mg in the evening as per Oncology Dr. Flor's recommendation. continue physical therapy Fall precaution and seizure precaution continue monitor for any abnormal bleeding Continue oxygen supplement with 2 Liter nasal canula Consider to repeat CT chest in 1 month for the pulmonary infarct Medication Instructions: Eliquis Your condition is typically treated with an anticoagulant. Anticoagulants will thin your blood to help prevent new clots. You should take her medication exactly as directed. Never skip a dose. Never take a double dose. If you miss a dose, take it as soon as you remember. Avoid NSAIDs (Motrin, Aleve, Naproxen, Ibuprofen, Advil, Meloxicam,..) due to risks of bleeding Call your Primary Care doctor if you experience any of the following: Swelling or Pain in your leg Sudden, continuous pain deep in a muscle Pain that worsens when you are active or when you stand still for a long time Chest Pain Sudden Shortness of Breath Rapid or pounding heart beat Fainting Dizziness Cough with blood or bloody sputum Sweating more than normal Bruises Heavy or uncontrolled bleeding Blood in your urine, stool or vomit Black or tarry stools Caring for Your Self at Home: Avoid sitting, standing or lying down for long periods without moving your legs and feet When traveling by car, stop to get out and move around at least once every 3 hours On long airplane, train or bus rides, get up and move around when possible If you can't get up, wiggle your toes and tighten your calves to keep your blood moving Follow Up: It is important for you to keep your follow up appointments with your medical provider. Pending Studies at Discharge: No Stand-Alone Forms: My [facility] Skilled Items Patient informed of condition?: Yes DNR: Yes Discharge Level of Care: Acute rehab Communicable Disease: No Discharge Prognosis: Stable Lines: None Urinary Catheter: No Medications and DC Order Prescriptions: New Eliquis 5 mg Tablet 10 mg PO UD Qty: 74 RF: 0 oxycodone 5 mg Tablet 5 mg PO Q6H PRN (Reason: pain) Qty: 10 RF: 0 Continued hydroxyzine HCl 50 mg tablet 50 mg PO DAILY PRN (Reason: Anxiety) RF: 0 prochlorperazine maleate 10 mg tablet 10 mg PO Q6H PRN (Reason: Nausea And Vomiting) RF: 0 ziprasidone HCl 20 mg capsule 20 mg PO BID RF: 0 famotidine 20 mg tablet 20 mg PO BID RF: 0 temazepam 15 mg capsule 15 mg PO HS PRN (Reason: Sleep) RF: 0 baclofen 10 mg tablet 10 mg PO TID PRN (Reason: Muscle Spasm) RF: 0 rizatriptan 10 mg tablet,disintegrating 10 mg translingual DAILY PRN (Reason: Migraine Headache) RF: 0 guanfacine 1 mg tablet 1 mg PO BID RF: 0 norgestimate-ethinyl estradiol [Tri-Sprintec (28)] 0.18/0.215/0.25 mg-35 mcg (28) tablet 1 tab PO HS RF: 0 metoprolol tartrate 25 mg tablet 12.5 mg PO BID RF: 0 duloxetine 60 mg capsule,delayed release(DR/EC) 60 mg PO QAM RF: 0 fenofibrate nanocrystallized 48 mg tablet 48 mg PO QAM RF: 0 lacosamide [Vimpat] 100 mg tablet 100 mg PO BID RF: 0 multivitamin Tablet 1 tab PO DAILY RF: 0 acetaminophen 325 mg Tablet 650 mg PO Q4H PRN (Reason: Pain) RF: 0 sennosides-docusate sodium [Senokot-S] 8.6-50 mg Tablet 1 tab-cap PO DAILY PRN (Reason: Constipation) RF: 0 oxycodone-acetaminophen 5-325 mg Tablet 1 tab PO Q4H PRN (Reason: Pain) RF: 0 magnesium hydroxide [Milk of Magnesia] 400 mg/5 mL Suspension 30 ml PO DAILY PRN (Reason: Constipation) RF: 0 bisacodyl 10 mg Suppository 10 mg OR DAILY PRN (Reason: Constipation) RF: 0 Fleet Enema 19-7 gram/118 mL Enema 118 ml OR DAILY PRN (Reason: Constipation) RF: 0 docusate sodium 100 mg Capsule 100 mg PO BID RF: 0 polyethylene glycol 3350 [Miralax] 17 gram/dose Powder 17 g PO DAILY RF: 0 loratadine 10 mg Tablet 10 mg PO DAILY RF: 0 Saccharomyces boulardii 250 mg Capsule 250 mg PO DAILY RF: 0 artificial tears with lanolin Ointment 1 applic OPHTHALMIC (EYE) Q8H PRN (Reason: Dry Eyes) RF: 0 diclofenac sodium 1 % Gel 2 g TOPICAL DAILY PRN (Reason: Pain) RF: 0 Biofreeze (menthol) 5 % Gel 1 ea TOPICAL QID PRN (Reason: Pain) RF: 0 balsam moe-castor oil Ointment 1 applic TOPICAL DAILY RF: 0 Changed dexamethasone 2 mg Tablet 2 mg PO UD Qty: 0 RF: 0 Discontinued enoxaparin 100 mg/mL Syringe 90 mg SUBCUT Q12H RF: 0 Discharge Orders: Discharge Order (Routine); Ordered 08/26/21 Ordered By: Sy Mosley Admission Data Admit Date/Time: 08/26/21 08:09 Attending Provider: Sy Mosley Admit Provider: Sy Mosley Primary Care Provider: Marek Crum Other Providers: [facility] ; Sy Mosley Other Interventions: Discharge Summary Assessment (RN) Last Done: 08/26/21 18:06
[2021-08-26] MEDS ORDERED: DOCUSATE SODIUM 100 MG CAP PO SCH (21:00)
[2021-08-26] MEDS ORDERED: METOPROLOL TARTRATE 25 MG TAB PO SCH (21:00)
[2021-08-26] MEDS ORDERED: FAMOTIDINE 20 MG TAB PO SCH (21:00)
[2021-08-26] MEDS ORDERED: dexAMETHasone 1 MG TAB PO SCH (21:00)
[2021-08-26] MEDS ORDERED: LACOSAMIDE 50 MG TABLET PO SCH (21:00)
[2021-08-26] MEDS ORDERED: guanFACINE HCL 1 MG TAB PO SCH (21:00)
[2021-08-27] MEDS ORDERED: dexAMETHasone 1 MG TAB PO SCH (09:00)
[2021-08-27] MEDS ORDERED: FENOFIBRATE NANOCRYSTALLIZED 48 MG TABLET PO SCH (09:00)
[2021-08-27] MEDS ORDERED: LORATADINE 10 MG TAB PO SCH (09:00)
[2021-08-27] MEDS ORDERED: POLYETHYLENE (MIRALAX) 17 GM PACK PO SCH (09:00)
[2021-08-27] MEDS ORDERED: DULoxetine HCL 60 MG CAP PO SCH (09:00)
== END 2021-08-26 20:50 | DRG 176 ==
LOC: EDBD 02:50 → ED 02:50 → 2N 08:09